=== PATIENT | female | born 1990 | race Two or more races ===

== ENCOUNTER 2024-10-28 20:06 | Emergency (ER) | payer MEDICAID, SELFPAY ==
[2024-10-28 20:07] VITALS: BMI 21.7
--- NOTE | 2024-10-28 20:53 | EKG_ITS ---
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1990 Requested By: ED Temporary Provider Order Number: [id number] Reading MD: ED Temporary Provider Measurements Intervals [place] Rate: 132 P: 29 FL: 132 QRS: 162 QRSD: 101 T: 48 QT: 296 QTc: 439 Interpretive Statements SINUS TACHYCARDIA INCOMPLETE RIGHT BUNDLE BRANCH BLOCK [90+ ms QRS DURATION, TERMINAL R IN V1/V2, 40+ ms S IN I/aVL/V4/V5/V6] POSSIBLE RIGHT VENTRICULAR HYPERTROPHY [SOME/ALL OF: PROMINENT R IN V1, LATE TRANSITION, RAD, ESTEE, SSS] POSSIBLE ANTERIOR MYOCARDIAL INFARCTION , OF INDETERMINATE AGE [30 ms Q WAVE IN V3/V4, OR R < 0.2 mV IN V4] Compared to ECG 12/28/2021 22:52:43 Myocardial infarct finding now present /store/S0/[id number]/ecg/[id number].pdf
[2024-10-28 21:09] VITALS: BP 102/68; PULSE 135; RESP 18; TEMP 37.9; O2SAT 98
[2024-10-28 21:13] LABS: Basophils # (Auto) 0.0 Thou/mm3 (0.0-0.2); Basophils % (Auto) 1 % (0-2.5); Eosinophils # (Auto) 0.0 Thou/mm3 (0.0-0.5); Eosinophils % (Auto) 0 % (0-10); Hematocrit 24.5 % (36.0-46.0); Immature Granulocytes Auto 0.01 Thou/mm3 (0.00-0.00); Lymphocytes # (Auto) 1.7 Thou/mm3 (1.0-4.8); Lymphocytes % (Auto) 45 % (10-50); Mean Corpuscular HGB Conc 34.3 g/dl (31.0-37.0); Mean Corpuscular Hemoglobin 31.2 pg (25.0-35.0); Mean Corpuscular Volume 91 fL (80-100); Monocytes # (Auto) 0.3 Thou/mm3 (0.0-0.8); Monocytes % (Auto) 9 % (0-12); Neutrophils # (Auto) 1.7 Thou/mm3 (1.8-7.7); Neutrophils % (Auto) 45 % (37-80); Nucleated Red Blood Cell # 0.00 Thou/mm3 (0.00-0.00); Nucleated Red Blood Cell % 0 /100 WBC (0); Platelet Count 162 Thou/mm3 (140-440); RDW Standard Deviation 51.1 fL (36.4-46.3); Red Blood Count 2.69 Miln/mm3 (4.00-5.20); White Blood Count 3.7 Thou/mm3 (3.6-11.0)
[2024-10-28 21:23] LABS: Hemoglobin 8.4 g/dL (12.0-16.0)
[2024-10-28 21:28] LABS: INR 1.0 (0.9-1.3); Partial Thromboplastin Time 29.1 Seconds (22.0-36.0); Prothrombin Time 10.9 Seconds (9.0-12.2)
[2024-10-28 21:32] LABS: B-Type Natriuretic Peptide < 20 pg/mL (0-100)
[2024-10-28 21:47] LABS: Alanine Aminotransferase < 7 U/L (10-49); Albumin, Serum 2.9 gm/dL (3.5-5.0); Albumin/Globulin Ratio 0.6 (1.2-2.2); Alkaline Phosphatase 61 U/L (46-116); Anion Gap 7 (7-16); Aspartate Amino Transferase 35 U/L (0-34); BUN/Creatinine Ratio 10 Ratio (12-20); Bilirubin,Total 0.2 mg/dL (0.3-1.2); Blood Urea Nitrogen 7 mg/dL (9-23); Calcium 7.7 mg/dL (8.3-10.6); Calcium (Corrected) 8.6 mg/dL (8.5-10.1); Carbon Dioxide 21.1 mMol/L (20.0-31.0); Chloride 103 mMol/L (98-107); Creatinine (Component) 0.7 mg/dL (0.6-1.3); Estimated Creatinine Clearance 83.8 mL/min (>60); Globulin 5.1 gm/dL (2.3-3.5); Glucose 98 mg/dL (74-106); Lipase 51 U/L (12-53); Magnesium 1.6 mg/dL (1.6-2.6); Osmolality,Calculated 260 (275-295); Potassium 4.2 mMol/L (3.4-5.1); Sodium 131 mMol/L (136-145); Total Protein 8.0 gm/dL (5.7-8.2); Troponin I < 0.020 ng/mL (0.0-0.045); eGFR > 60 See Note
[2024-10-28 23:16] LABS: Collection Type, Urine Clean Catch
[2024-10-28 23:37] LABS: Bacteria,Urine 3+; Bilirubin,Urine Negative (Negative); Blood,Urine 3+ (Negative); Clarity,Urine Turbid (Clear/Hazy); Color,Urine Yellow (Lt Yel-Yel); Glucose, Urine Negative (Negative); Hyaline Casts,Urine < 1 /hpf (0-1); Ketones,Urine Negative (Negative); Leukocyte Esterase,Urine Positive (Negative); Nitrite,Urine Positive (Negative); PH,Urine 6.5 (5.0-7.0); Protein,Urine 3+ (Neg - Trace); RBC,Urine 8 /hpf (0-3); Specific Gravity,Urine 1.020 (1.001-1.035); Squamous Epithelial Cell,Urine 6 /hpf (0-5); Urobilinogen,Urine Negative mg/dL (0.0-1.0); WBC,Urine 31 /hpf (0-5)
[2024-10-28 23:38] LABS: Amphetamine/Methamp Scrn,U Negative (Negative); Barbiturate Screen,Urine Negative (Negative); Benzodiazepines Screen,Urine Negative (Negative); Benzoylecgonine Screen, Ur Negative (Negative); Fentanyl Screen,Urine Negative (Negative); Opiate Screen,Urine Negative (Negative); THC Screen,Urine Negative (Negative)
[2024-10-28 23:40] LABS: HCG Qualitative,Urine Negative
[2024-10-28 23:43] LABS: Culture Indicated,Urine Yes
--- NOTE | 2024-10-28 23:50 | XR_ITS ---
Examination: PA lateral chest 2 views TECHNIQUE: Upright PA and lateral chest 2 views Date and time: October 28, 2024, 2355 hours Comparison December 28, 2021 INDICATIONS: Coughing and fever beginning 3 days ago. FINDINGS: Subtle opacity in the lower lung zones Normal heart size The osseous structures are intact IMPRESSION: Suspicious for early right basilar pneumonia
--- NOTE | 2024-10-28 23:54 | PD.EDRME ---
Rapid Medical Screening Exam RME Arrival date/time: 10/28/24 20:06 Chief Complaint: Fever Time Seen by Provider: 10/28/24 22:51 Vital signs: Vital Signs Temperature 100.2 F 10/28/24 21:09 Pulse Rate 135 H 10/28/24 21:09 Respiratory Rate 18 10/28/24 21:09 Blood Pressure 102/68 10/28/24 21:09 Pulse Oximetry (%) 98 10/28/24 21:09 Oxygen Delivery Method Room Air 10/28/24 21:09 Vital signs reviewed by provider: Yes RME Narrative: 34-year-old female presents to the ED with a complaint of fever of 102.6 and cough with clear phlegm for the past 1 week. She was taking Tylenol every 8 hours until today. She states she took 500 mg x 2 tablets and then 1 tablet every 8 hours afterwards. She also states she has had a bloody discharge from her nose and mild sore throat. She denies any ear pain. She is using an inhaler which helps a little with the cough. She denies any chest pain or shortness of breath other than when she is coughing. She has had increased burping but denies any nausea, vomiting, diarrhea, or melena.. She has had some mid abdominal pain that started 2 weeks ago and went away. It restarted yesterday. She denies any dysuria or frequency and she also denies any hematuria. I have greeted and performed a focused initial assessment of this patient. A comprehensive ED assessment and evaluation of the patient, analysis of all test results, and completion of the medical decision making process will be conducted by additional ED providers.
[2024-10-29] MEDS: ALBUTEROL/IPRATROPIUM (Duoneb) RT SOL 3 ML NEBU INH
[2024-10-29 00:03] VITALS: PULSE 141; RESP 26; TEMP 37.9; O2SAT 100
[2024-10-29] MEDS: DEXAMETHASONE SOD PHOS INJ 10 MG/ML VIAL PO (00:03)
[2024-10-29] MEDS: ACETAMINOPHEN 500 MG TABLET 1000 MG PO (00:03)
[2024-10-29] MEDS: LIDOCAINE VISCOUS 2% 15 ML UDC PO (00:07)
[2024-10-29] MEDS: MG HYD/AL HYD/SIME (Maalox Reg) SUSP 30 ML UDC PO (00:07)
[2024-10-29 00:09] VITALS: BP 111/71; PULSE 137; RESP 18; TEMP 38.6; O2SAT 100
[2024-10-29 00:27] LABS: Strep A Rapid Negative (Negative)
--- NOTE | 2024-10-29 01:28 | PD.EDFEVER ---
ED Fever RME/HPI General Chief Complaint: Fever Stated Complaint: FEVER AND DIZZINESS FOR 3 DAYS, ABD PAIN, COUGH Time Seen by Provider: 10/28/24 22:51 Arrival date/time: 10/28/24 20:06 RME / HPI RME / HPI Narrative: 34-year-old female presents to the ED with a complaint of fever of 102.6 and cough with clear phlegm for the past 1 week. She was taking Tylenol every 8 hours until today. She states she took 500 mg x 2 tablets and then 1 tablet every 8 hours afterwards. She also states she has had a bloody discharge from her nose and mild sore throat. She denies any ear pain. She is using an inhaler which helps a little with the cough. She denies any chest pain or shortness of breath other than when she is coughing. She has had increased burping but denies any nausea, vomiting, diarrhea, or melena.. She has had some mid abdominal pain that started 2 weeks ago and went away. It restarted yesterday. She denies any dysuria or frequency and she also denies any hematuria. I have greeted and performed a focused initial assessment of this patient. A comprehensive ED assessment and evaluation of the patient, analysis of all test results, and completion of the medical decision making process will be conducted by additional ED providers. DR. EVANS MAIN ED EVALUATION: 34 y/o female with Hx of Lupus Erythematous presents to ED c/o fever, dizziness, cough, sore throat, and lower abdominal pain x 2 weeks. She also reports a stinging chest pain when she coughs. Patient is not on any medication for Lupus anymore. Denies any allergy to medication. No other concerns or complaints expressed at this time. Related Data Home Medications ?Medication ?Instructions ?Recorded ?Confirmed allopurinol 300 mg tablet 300 mg PO HS 12/28/21 12/28/21 hydroxychloroquine 200 mg tablet 200 mg PO QDAY 12/28/21 12/28/21 Previous Rx's ?Medication ?Instructions ?Recorded ibuprofen 200 mg tablet See Rx Instructions .Route 12/29/21 .COMPLEX #189 tabs cephalexin 500 mg capsule 1,000 mg (2 x 500 mg) PO BID 7 10/29/24 days #28 caps Allergies Allergy/AdvReac Type Severity Reaction Status Date / Time No Known Allergies Allergy Verified 10/28/24 20:07 Review of Systems Review of Systems Systems Reviewed: All systems reviewed, normal except as documented Past Medical History Past Medical History ENDOCRINE: Positive Systemic Lupus Erythematosus OTHER HISTORY: Positive Hospitalization and Autoimmune Disease Family History FAMILY HISTORY: Positive Family Cardiac Disorders Physical Exam Narrative Physical exam: Generally patient is alert somewhat chronically ill-appearing but in no obvious distress oropharynx is moist and clear neck shows no nuchal rigidity heart is tachycardic rate with regular rhythm lungs clear to auscultation equal bilaterally abdomen soft bowel sounds present nondistended mild suprapubic abdominal tenderness without rebound skin is warm pale and dry without rash neurologic exam no focal motor or sensory deficits cranial nerves II through XII grossly intact Course Course Course Narrative: CXR is ordered for determining the etiology of shortness of breath. Quality Measures none Orders Category Date Time Status Bedside COVID-19 Antigen Test NOW Care 10/29/24 00:03 Active Bedside Influenza A&B Antigen Test NOW Care 10/29/24 00:03 Completed EKG (ED ONLY) *Do not use* NOW Care 10/28/24 20:53 Completed EKG (ED Only) Stat Exams 10/28/24 20:53 Draft XR chest 2V Stat Exams 10/28/24 23:50 Taken B-Type Natriuretic Peptide Stat Lab 10/28/24 21:01 Completed CBC Stat Lab 10/28/24 21:01 Completed Comprehensive Metabolic Panel Stat Lab 10/28/24 21:01 Completed Drug Screen,Urine Stat Lab 10/28/24 23:11 Completed HCG Qualitative,Urine Stat Lab 10/28/24 23:11 Completed Lipase Stat Lab 10/28/24 21:01 Completed Magnesium Stat Lab 10/28/24 21:01 Completed Partial Thromboplastin Time Stat Lab 10/28/24 21:01 Completed Prothrombin Time with INR Stat Lab 10/28/24 21:01 Completed Strep A Rapid Stat Lab 10/29/24 00:06 Completed Troponin I Stat Lab 10/28/24 21:01 Completed UA, C/S IF [Urinalysis, C/S if Indicated] Stat Lab 10/28/24 23:11 Completed Urinalysis Stat Lab 10/28/24 23:11 Completed Urine Culture Stat Lab 10/28/24 23:11 Received Acetaminophen Tab [Tylenol ES Tab] Med 10/28/24 23:52 Discontinued 1,000 mg PO X1 ONE Albuterol/Ipratr Rt Matilde [Duoneb Rt Matilde] Med 10/28/24 23:50 Discontinued 3 ml INH X1 ONE Dexamethasone Inj [Decadron Inj] Med 10/28/24 23:50 Discontinued 10 mg PO X1 ONE Ibuprofen Tab [Motrin Tab] Med 10/29/24 01:27 Discontinued 600 mg PO X1 ONE Lidocaine 2% Viscous [Xylocaine 2% Viscous] Med 10/28/24 23:53 Discontinued 15 ml PO X1 ONE Sodium Chloride 0.9% 1000 ml [Ns] 1,000 ml Med 10/29/24 01:27 Active IV 999 mls/hr cefTRIAXone/D5w 1gm IV premix [Rocephin/D5w 1gm IV Med 10/29/24 01:29 Discontinued premix] 1 gm in 50 ml IV X1 mg Hyd/Al Hyd/Zana Susp [Maalox Susp] Med 10/28/24 23:53 Discontinued 30 ml PO X1 ONE Vital Signs Vital signs: Vital Signs Temperature 100.2 F 10/28/24 21:09 Pulse Rate 135 H 10/28/24 21:09 Respiratory Rate 18 10/28/24 21:09 Blood Pressure 102/68 10/28/24 21:09 Pulse Oximetry (%) 98 10/28/24 21:09 Oxygen Delivery Method Room Air 10/28/24 21:09 Fever MDM Narrative MDM Narrative:: Scribe Attestation: IMirna am scribing for and in the presence of Dr. Evans. Provider Notation: Although this document has been carefully reviewed, there may still be some phonetic and other typographical errors.? These errors are purely grammatical due to imperfections in the software program and should not be construed in any way to? compromise the substance of the patient's medical care during this visit. I interpreted all labs. There is no leukocytosis. Chest x-ray is normal. Urine appears to be infected. Patient was hydrated with a liter normal saline which decreased heart rate to 100. Patient is never been hypotensive. For the UTI the patient received Rocephin 1 g IV. She will be discharged on cephalexin to be taken as prescribed. Follow-up with her doctor. Return to ER as needed or if condition worsens. She was given Tylenol and ibuprofen for fever which brought the temperature down here in the emergency room. Patient data External records reviewed:: [facility] previous records (No recent ED records available for review.) Clinical information provided by:: patient Social determinants that could affect healthcare access:: none Patient has the following chronic illnesses:: Systemic Lupus Erythematous How is presenting disease/condition affected by chronic disease/condition?: exacerbated by Evaluation data The following diagnostics were reviewed and interpreted by me:: lab results, radiology exam(s) and EKG tracing(s) Lab and/or radiology exams considered but not ordered:: None Interpretation Summary: RADIOLOGY Chest X-Ray: See MDM above. Medications / Prescriptions Medications or Prescriptions considered but not ordered:: None Medication administrations:: Medication Administration History Sodium Chloride (Ns) 1,000 mls @ 999 mls/hr IV .Q1H1M ONE Stop: 10/29/24 02:27 Last Admin: 10/29/24 01:30 Dose: 999 mls/hr Documented By: [email or web address] Discontinued Medications Acetaminophen (Acetaminophen 500 Mg Tablet) 1,000 mg PO X1 ONE Stop: 10/28/24 23:53 Last Admin: 10/29/24 00:03 Dose: 1,000 mg Documented By: EE Al Hydrox/Mg Hydrox/Simethicone (Mg Hyd/Al Hyd/Zana (Maalox Reg) Susp 30 Ml Udc) 30 ml PO X1 ONE Stop: 10/28/24 23:54 Last Admin: 10/29/24 00:07 Dose: 30 ml Documented By: EE Albuterol/Ipratropium (Albuterol/Ipratropium (Duoneb) Rt Matilde 3 Ml Nebu) 3 ml INH X1 ONE Stop: 10/28/24 23:51 Last Admin: 10/29/24 00:00 Dose: 3 ml Documented By: DANIEL Dexamethasone Sodium Phosphate (Dexamethasone Sod Phos Inj 10 Mg/Ml Vial) 10 mg PO X1 ONE Stop: 10/28/24 23:51 Last Admin: 10/29/24 00:03 Dose: 10 mg Documented By: EE Ceftriaxone Sodium/Dextrose (Rocephin/D5w 1gm Iv Premix) 1 gm in 50 mls @ 100 mls/hr IV X1 ONE Stop: 10/29/24 01:58 Last Admin: 10/29/24 01:55 Dose: 100 mls/hr Documented By: EVI Ibuprofen (Ibuprofen Tab 600 Mg Tablet) 600 mg PO X1 ONE Stop: 10/29/24 01:28 Last Admin: 10/29/24 01:55 Dose: 600 mg Documented By: EVI Lidocaine HCl (Lidocaine Viscous 2% 15 Ml Udc) 15 ml PO X1 ONE Stop: 10/28/24 23:54 Last Admin: 10/29/24 00:07 Dose: 15 ml Documented By: CARMELA See above if any. Consultations Consultation(s) initiated? (list below): No Diagnosis Fever Differential Diagnosis: cellulitis, fever of unknown origin, gastroenteritis, community acquired pneumonia, pyelonephritis, viral infection, sepsis and influenza Most likely diagnosis given after review of the tests above:: None Admission Indicated Admission indicated?: not indicated Explain why admission is indicated or not indicated:: Patient does not meet admission criteria. Admission Request Was there a request for admission?: No Disposition Plan Disposition Plan: other (specify) Discharge Plan Plan Patient Disposition: HOME (Self Care) Prescriptions/Referrals Prescriptions/Med Rec: New cephalexin 500 mg capsule 1,000 mg PO BID 7 Days Qty: 28 0RF No Action allopurinol 300 mg Tablet 300 mg PO HS hydroxychloroquine 200 mg Tablet 200 mg PO QDAY ibuprofen 200 mg tablet See Rx Instructions .ROUTE .COMPLEX Qty: 189 0RF Rx Instructions: start 3 tablets, 600 mg TID for 2 weeks then 2 tablet, 400 mg TID for 1 week then 1 tablet, 200 mg TID for 1 week Referrals: No Primary/Family,Physician [Primary Care Provider] - In 1 week Problem List Clinical Impression: UTI (urinary tract infection) Patient/Caregiver Discharge Instructions Education Materials: ED CYSTITIS Female Adult Additional Instructions: You may use Tylenol and/or ibuprofen as needed for pain and fever. Cephalexin as prescribed. Follow-up with your doctor. Return to ER as needed or if condition worsens. Print Language: Stateless Stand Alone Forms: [employer] Award Info., Patient Portal Info Letter
[2024-10-29] MEDS: SODIUM CHLORIDE 0.9% 1000 ML 1,000 ML 999 ML IV (01:30)
[2024-10-29 01:40] VITALS: TEMP 37.6
[2024-10-29 01:55] VITALS: TEMP 37.6
[2024-10-29] MEDS: cefTRIAXone/D5w 1gm IV premix 1 GM/50 ML BAG IV (01:55)
[2024-10-29] MEDS: IBUPROFEN TAB 600 MG TABLET PO (01:55)
[2024-10-29 02:44] VITALS: BP 108/64; PULSE 101; RESP 22; TEMP 37.1; O2SAT 99
== END 2024-10-29 03:15 | disposition home or self-care (01) ==
PROVIDERS: Physician Assistant; Emergency Provider Emergency Medicine
DX: N39.0 Urinary tract infection, site not specified (principal); R05.9 Cough, unspecified; R00.0 Tachycardia, unspecified; I45.10 Unspecified right bundle-branch block
CPT/HCPCS: 36415; 71046; 80053; 80307; 81001; 81025; 83690; 83735; 83880; 84484; 85025; 85610; 85730; 87077; 87086; 87186; 87400; 87651; 87811; 93005; 94640; 99283; A9270; J0696; J1100; J3490; J7030

== ENCOUNTER → 2024-11-07 | Outpatient (CLI) | payer MEDICAID, SELFPAY ==
--- NOTE | 2024-11-07 13:56 | XR_ITS ---
Examination: PA lateral chest 2 views TECHNIQUE: Upright PA lateral chest 2 views Date and time: November 07, 2024 1419 hours INDICATIONS: Coughing shortness of breath 8 months. FINDINGS: Accentuation basilar bronchovascular markings. Normal heart size Prominent osteopenia IMPRESSION: Basilar bronchitis pattern
== END | disposition home or self-care (01) ==
PROVIDERS: PCP Physician Assistant; Referring Provider Physician Assistant; Visit Provider Physician Assistant
DX: R05.1 Acute cough (principal)
CPT/HCPCS: 71046